=== PATIENT | male | born 1975 | race Caucasian/White ===

== ENCOUNTER 2016-10-21 07:26 | Inpatient (IN) | payer OTHER ==
[~2016-10-21] VITALS: Ht 172.7 cm; Wt 108.0 kg
--- NOTE | ~2016-10-21 | HP ---
Unit #: [id number] #: [id number] Patient: ROJAS MUÑOZ [id number] [address] [place], [place] [address] [id number] I MR#: [id number] NAME: ROJAS MUÑOZ ROOM: 337 Age: 41 Sex: M Admission Date: 10/21/2016 : 1975 Attending Physician: Leslie Diane M.D. Primary Care Physician: No Primary Care Physician HISTORY AND PHYSICAL CHIEF COMPLAINT Lower quadrant and back pain. HISTORY OF PRESENT ILLNESS The patient is a 41 year old admitted with history of hypertension, brought to the emergency room complaining of back pain. The patient stated that patient came back from work at 1:30 earlier in the morning and complaining of throbbing and burning low-back pain radiating to the front of the belly from the spine. The patient had a trauma to the left arm and the left rib a week ago. The patient stated that patient has been having worsening pain since early this morning. The patient had a CT of the abdomen and pelvis and that showed subacute left partial renal infarction. The patient also has history of abusing drugs with marijuana and denies any IV drug abuse. Denies any fever. Denies any chills. Positive for nausea and vomiting. PAST MEDICAL HISTORY History of hypertension. PAST SURGICAL HISTORY None. HOME MEDICATIONS No home medications. ALLERGIES Codeine. SOCIAL HISTORY Smokes pack of cigarettes daily. Denies alcohol. He smoked pot two weeks ago, and denies any IV drug abuse. FAMILY HISTORY Reviewed and none. REVIEW OF SYSTEMS Positive for the back pain. Positive for nausea and vomiting. Denies any headache. Denies any chest pain. Denies any short of breath. Other systems have been reviewed and all are negative except as mentioned above. PHYSICAL EXAMINATION GENERAL: The patient is sitting on a chair not in acute distress. VITAL SIGNS: Temperature 97.6, pulse 77, respiratory rate 18, blood pressure (1) , saturating 99% on room air. Unit #: [id number] #: [id number] Patient: ROJAS MUÑOZ HEENT: Head: Atraumatic, normocephalic. Pupils equal, round, and reactive to light and accommodation. Extraocular movements are intact. NECK: Supple. LUNGS: Decreased air entry at the bases. HEART: Regular rate and rhythm. ABDOMEN: Soft. Positive bowel sounds. BACK: No CVA tenderness. EXTREMITIES: No cyanosis. No clubbing. NEUROLOGIC: Alert, awake, oriented. No gross focal motor deficit. DIAGNOSTIC STUDIES LABORATORY: Urine tox is positive for amphetamines, marijuana, and opiates. UA shows pH of 9, negative bacteria, negative RBCs. Sodium 136, potassium 4, chloride 102, bicarbonate 21, glucose 124, BUN 9, creatinine 0.9. AST 37, ALT 35, albumin 5.1, lipase 36. WBC 10.4, hemoglobin 17.8, hematocrit 58.8, platelets 229,000. IMAGING: CT of the abdomen and pelvis with contrast shows subacute left partial renal infarction. No evidence of associated perirenal hemorrhage. The main renal arteries are grossly normal on both sides, although the study was not protocoled, specifically for the CTA. Diffuse hepatic steatosis. Normal appendix with no abnormalities noted in bowel loops. ASSESSMENT 1. Left renal infarct. 2. Polysubstance abuse. PLAN Plan to admit the patient to observation with telemetry. Continue with the pain medications with Dilaudid and [place]. Patient has been seen by urology and recommended hematology workup. We will consult hematology for the left renal infarct and continue with the blood pressure, pain medication. If it is still high, then we can use the beta blockers and further recommendations will follow. Dictated by Taiwo Bernard TD: 10/21/2016 16:32 JOB #: [id number] HISTORY AND PHYSICAL Page 1 of 1 X LESLIE DIANE MD X HISTORY AND PHYSICAL
--- NOTE | ~2016-10-21 | CO ---
Unit #: [id number] #: [id number] Patient: ROJAS CHESTER [id number] [address] [place], [place] [address] [id number] MR#: [id number] NAME: ROJAS CHESTER ROOM: 337 Age: 41 Sex: M Admission Date: 10/21/2016 : 1975 Attending Physician: Germán Parkinson M.D. Primary Care Physician: Primary Care Physician No Consultation Date: 10/24/2016 CONSULTATION REPORT REASON FOR CONSULT Renal infarct. Thank you very much for asking me to see this patient in consultation. HISTORY OF PRESENT ILLNESS Mr. Chester is a 41-year-old male, who presented here on 10/21/2016 where he presented with a few days of abdominal discomfort, back pain. Subsequently, worked up and CT scan showed a renal infarct. He has a history of hypertension for 5 years and not on any medications. We were asked to see the patient secondary to possible vascular problems to the kidneys. The patient states he still having some pain, but feeling better. During this hospitalization so far, he has undergone GONZALO of his heart, which showed normal EF. No sources of emboli. Although, he did have a ybddrkao-xb-mybndz atherosclerotic atheroma on his aorta. He underwent a CT angiogram of the chest and abdomen that showed some irregularity in the right renal artery and some irregularities in the left renal artery as well. I could not rule out vasculitis or possible fibromuscular dysplasia. On renal standpoint, he does have a normal creatinine of 0.9 today. PAST MEDICAL HISTORY History of hypertension and history of hyperlipidemia x5 plus years, no treatment, although the patient chose not to be treated. SOCIAL HISTORY He is a positive smoker, positive marijuana user. ALLERGIES Include codeine. MEDICATIONS At home were none. Now, he is on Lipitor, Cardura, Ambien, amlodipine, Zofran, Lopressor, and [place]. FAMILY HISTORY Negative for any blood clots or kidney problems. REVIEW OF SYSTEMS He denies any severe headaches, dizziness, visual problems, sinus problems. No cough or hemoptysis. No neck pain or neck stiffness. No chest pain or chest heaviness. Now, he did have some sore ribs after minor scraping on a land bobsledding about 2 weeks ago and a little sore in his ribs in his left lower rib. He denies any nausea or vomiting now. Unit #: [id number] #: [id number] Patient: ROJAS CHESTER He did have some nausea and vomiting prior to admission. He denies any diarrhea. Denies any lower extremity swelling. No recent seizures or strokes. He denies any nonsteroidal use. PHYSICAL EXAMINATION GENERAL: He is alert and oriented. VITAL SIGNS: Temperature is 98.8, pulse 68 to 103, blood pressure is 111 to 144 over 74 to 104. HEENT: He is normocephalic and atraumatic. Pupils are equal, round, and reactive to light. Extraocular muscles are intact. Hearing appears to be normal. Mouth is clear. No erythema. No exudate. NECK: Supple. No JVD. No adenopathy. CARDIAC: Regular rate without a rub. No S3 or S4. LUNGS: Clear bilaterally. No wheezes, rhonchi, or rales. ABDOMEN: Bowel sounds are positive. Nontender. Soft. No masses felt. No hepatomegaly noted. EXTREMITIES: He has no lower extremity swelling. His pulses are intact in upper and lower extremities. JOINTS: No joint pain or joint swelling. SKIN: No rashes. NEURO: Appears to be intact with motor and sensory grossly. : Deferred. DIAGNOSTIC STUDIES LABORATORY RESULTS: Sodium 135, potassium 4.0, chloride is 101, bicarb is 27, BUN of 15, creatinine 0.9 with glucose of 87, calcium is 8.9. Cholesterol 209. Albumin was 5.1. Upon admission, hemoglobin 16.9, white count 11,900, platelets 191,000. UA upon admission showed specific gravity of 1.029, 1+ protein, 0 to 2 rbc's, 0 to 2 wbc's, and a pH of 9. ASSESSMENT AND PLAN 1. Left renal infarct, again the patient agree with workup for secondary causes of the renal infarct certainly this atheroma on the aorta and question of that could be contributing versus other. Dr. Kwon has seen the patient for possible hypercoagulable state versus other. He did order the CT angiogram, but I am not sure of any hypercoagulable workup was needed or included at this point in time. From my standpoint, I am worried that he could certainly have fibromuscular dysplasia with irregularity even on the right side. I would recommend and it can be done as an outpatient. A renal arteriogram to rule out fibromuscular dysplasia and other abnormalities of his renal arteries. Also, we will workup for possible vasculitis as well. Go ahead and repeat UA culture and sensitivity. Check a random urine protein to creatinine ratio. Check BMP in the morning. If he is here, I have discussed this with him and told him the need for followup and studies what we are doing. 2. Proteinuria, again 1+ protein. We will repeat urine. No hematuria. Check protein to creatinine ratio. 3. Hypertension. Blood pressure is improving. Treatment per primary/Cardiology. 4. Hyperlipidemia. Dictated by... Toney Brown M.D. ANIA/foster TD: 10/27/2016 04:04 Unit #: [id number] #: [id number] Patient: ROJAS CHESTER JOB #: [id number] CONSULTATION REPORT Page 1 of 1 X Jacey Brown MD X CONSULTATION REPORT
--- NOTE | ~2016-10-21 | CT15 ---
[facility] A Service of [facility] RADIOLOGY TEXT RESULTS PATIENT: ROJAS MUÑOZ LOCATION: [facility] 337-01 : [birth year] UNIT #: [id number] AGE: [address]: Germán Parkinson MD SEX: M ORDER DR: [id number] [place], [place] [address] [id number] I MR#: [id number] #: [id number] NAME: ROJAS MUÑOZ : 1975 SEX: M STUDY DATE/TIME: 10/23/2016 16:45 UNIT: [address] ROOM: [facility] STUDY DESCRIPTION: CT Angio Chest Attending Physician: Germán Parkinson M.D. Ordering Physician: Oliver Kwon M.D. Primary Care Physician: Primary Care Physician No MEDICAL IMAGING REPORT This report is preliminary unless electronic signature is present EXAM CT angiogram of the chest HISTORY FINDINGS Please see CT angiogram of the abdomen for results. Dictated by... Anjana Rivera M.D. THIS IS AN ELECTRONICALLY VERIFIED REPORT Anjana Rivera M.D. at 10/24/2016 4:45 PM TIFFANY/danya TD: 10/24/2016 14:36 JOB #: [id number] MEDICAL IMAGING REPORT Page 1 of 1 COPY
--- NOTE | ~2016-10-21 | TOC ---
Unit #: [id number] #: [id number] Patient: ROJAS MUÑOZ [id number] [address] [address] [id number] I MR#: [id number] NAME: ROJAS MUÑOZ ROOM: 337 Age: 41 Sex: M Admission Date: 10/21/2016 : 1975 Attending Physician: Germán Parkinson M.D. Primary Care Physician: No Primary Care Physician TRANSFER OF CARE SUMMARY DISCHARGE DIAGNOSES 1. Left renal infarct. 2. Polysubstance abuse. 3. Hyperlipidemia. 4. Hypertension. 5. Metabolic acidosis. HOSPITAL COURSE The patient is a 41-year-old male who presented to [facility] emergency department with a complaint of left lower quadrant and back pain. Apparently it started when the patient came back from work at 1:30 in the morning and described it as a throbbing and burning. He presented to the emergency department due to the severity and a CT performed there revealed subacute left parietal renal infarct. The patient's tox screen was noted to be positive for amphetamines, marijuana and opiates. Hematology consult was obtained as well as urology consult. Urology recommended followup CT scan in six weeks. Hematology ordered further imaging in the form of CTA of the chest and abdomen. The patient had a GONZALO ordered as well. At this time GONZALO showed grade 4 atheroma and the patient has been started on aspirin and statin. Reports are pending for CTA of the chest and abdomen. There is an initial voice clip that is read as possible vasculitis associated with the left kidney and a renal consult has been placed. The remainder of the discharge summary including discharge medications will be dictated by my discharging colleague. Dictated by... Germán Parkinson M.D. GREGG/lawanda TD: 10/24/2016 16:08 JOB #: [id number] Unit #: [id number] #: [id number] Patient: ROJAS MUÑOZ TRANSFER OF CARE SUMMARY Page 1 of 1 X Germán Parkinson MD X TRANSFER OF CARE SUMMARY
--- NOTE | ~2016-10-21 | CT13 ---
[facility] A Service of [facility] & [facility] RADIOLOGY TEXT RESULTS PATIENT: ROJAS MUÑOZ LOCATION: [facility] 337-01 : [birth year] UNIT #: [id number] AGE: [address]: Germán Parkinson MD SEX: M ORDER DR: [id number] [facility] [address] [place], [place] [address] [id number] I MR#: [id number] #: [id number] NAME: ROJAS MUÑOZ : 1975 SEX: M STUDY DATE/TIME: 10/23/2016 16:45 UNIT: A [facility] ROOM: [facility] STUDY DESCRIPTION: CT Angio Abdomen Attending Physician: Germán Parkinson M.D. Ordering Physician: Oliver Kwon M.D. Primary Care Physician: Primary Care Physician No MEDICAL IMAGING REPORT This report is preliminary unless electronic signature is present EXAM CT angiogram of the chest and abdomen INDICATION Left partial subacute renal infarcts diagnosed on October 21, 2016. Patient also reports some chest discomfort since that time. TECHNIQUE Axial CT images were obtained from the thoracic inlet through the abdomen following the administration of intravenous contrast material. Following this 3-D reformatted images were obtained. This CT exam was performed with one or more of the following radiation dose reduction techniques: automatic exposure control, adjustment of mA and/or kV according to patient size, and iterative reconstruction. FINDINGS Thoracic aorta measures within normal size limits. I do not see any evidence of dissection. Examination was not optimized for evaluation of pulmonary arteries. No large central pulmonary thromboembolus is seen. The abdominal aorta also measures within normal size limits. Celiac axis is widely patent as is the superior mesenteric artery. The patient has two right renal arteries and two left renal arteries. Within the main right renal artery I question if there is some irregularity which could reflect some vasculitis. Specifically, fibromuscular dysplasia. On the left there is again the question of some irregularity involving branches supplying the superior pole of the left kidney again given other relative lack of atherosclerotic disease as well as the presence of some renal infarction on the left, possibility of vasculitis should be considered. Patient's inferior mesenteric artery is widely patent as are the common iliac arteries bilaterally. Patient is incidentally noted to have a common origin of the left common carotid and innominate arteries. There is no pleural or pericardial effusion. The thyroid gland, trachea and STS. [facility] A Service of [facility] & [facility] RADIOLOGY TEXT RESULTS PATIENT: ROJAS MUÑOZ LOCATION: [facility] 337-01 : [birth year] UNIT #: [id number] AGE: [address]: Germán Parkinson MD SEX: M ORDER DR: esophagus appear unremarkable. Patient is noted to have some bibasilar atelectasis. Patient is suspected to have diffuse hepatic steatosis incompletely evaluated on this angiographic protocol CT. No focal hepatic lesions are seen. Gallbladder appears unremarkable. The spleen is within normal limits as are the stomach and proximal small bowel. Adrenal glands and pancreas appear normal. Right kidney is within normal limits. Again there are areas of peripheral wedge-shaped diminished enhancement within the left kidney which certainly could reflect renal infarction. Pyelonephritis would be another consideration in the appropriate clinical setting. There is certainly no associated perinephric stranding. No hydronephrosis is seen. Correlation with urinalysis and urine cultures is recommended. I do not see any free fluid or adenopathy within the abdomen. The appendix is visualized and is within normal limits. Review of bony windows does not demonstrate any aggressive osseous abnormalities. The patient is noted to have bilateral gynecomastia. IMPRESSION 1. I do question if there is some subtle irregularity of the main renal arteries bilaterally. In the setting of possible renal infarcts in a patient with relatively minimal atherosclerotic disease, this raises the possibility of vasculitis. FMD in particular would be a consideration. Correlation with clinical presentation is recommended. No convincing involvement of any other vessels is seen. No dissection is identified. 2. Patient does show peripheral diminished enhancement within the left kidney. This results in a somewhat striated appearance to the left kidney. This was favored to be related to segmental renal infarction although certainly pyelonephritis would be another consideration. Correlation with urinalysis and urine cultures is suggested. Of note, I do not see any associated perinephric stranding, hydronephrosis or perinephric collections. 3. Suspected hepatic steatosis. 1. Dictated by... Anjana Rivera M.D. THIS IS AN ELECTRONICALLY VERIFIED REPORT Anjana Rivera M.D. at 10/24/2016 4:44 PM AFF/jw TD: 10/24/2016 14:35 JOB #: [id number] [facility] A Service of [facility] & [facility] RADIOLOGY TEXT RESULTS PATIENT: ROJAS MUÑOZ LOCATION: [facility] 337-01 : [birth year] UNIT #: [id number] AGE: [address]: Germán Parkinson MD SEX: M ORDER DR: MEDICAL IMAGING REPORT Page 1 of 1 COPY
--- NOTE | ~2016-10-21 | CO ---
Unit #: [id number] #: [id number] Patient: ROJAS CHESTER [id number] [facility]. [place], [place] [address] [id number] I MR#: [id number] NAME: ROJAS CHESTER ROOM: 337 Age: 41 Sex: M Admission Date: 10/21/2016 : 1975 Attending Physician: Germán Parkinson M.D. Primary Care Physician: Primary Care Physician No CONSULTATION REPORT HISTORY OF PRESENT ILLNESS This is a 41-year-old white male with a history of hypertension, but has not taken any blood pressure medication in some time. He presented to the emergency room with lower quadrant and left flank pain. According to the patient, this past Thursday was sledding on an [place] sled course at [employer] and had an accident resulting in abrasion to his left arm and development of left flank pain and left lower ribcage area pain shortly thereafter. He said it was mostly sharp and intermittent. He said it kind of eased off and was tolerable, then Thursday going into Thursday night, he said that it just started being progressively the pain worsening again. He said he had a cough and felt like he had a little bit of some chills. He described it as a stabbing, throbbing pain and was more constant. He denied any gross hematuria. No difficulty voiding. He has no history of kidney stones. The patient denies any chest pain, pain in his neck, bilateral jaws, shoulders, arms, or elbow. He denies any palpitations. No dizziness, presyncope, or syncope. Denies paroxysmal nocturnal dyspnea or orthopnea. No increased lower extremity edema. He denied any fever. He has some slight nausea. No vomiting or diarrhea. In the emergency room, the patient's blood pressure was found to be 183/112, heart rate 77, respirations 18, temperature 97.6, O2 saturations 99% on room air. His CT demonstrates a left renal infarct. Hematology has been consulted to evaluate for hypercoagulability state. The patient's blood pressure has slightly improved. He has been started on a beta-nell and Norvasc. Cardiology was asked to see the patient and evaluate the renal infarct to see if there is any cardiology source. The patient states he had a normal stress test years ago, but has not ever seen a regional service manager in the past. PAST MEDICAL HISTORY 1. Hypertension. 2. Non-compliancy with blood pressure medications. 3. Stress test about 10 years ago, told was normal. 4. Nicotine abuse. 5. Alcohol abuse. 6. Marijuana use. PAST SURGICAL HISTORY None. HOME MEDICATIONS None. Unit #: [id number] #: [id number] Patient: ROJAS CHESTER. SOCIAL HISTORY The patient lives with his family. 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 He says it is not physically stressful, but a lot of mental stress and a lot of walking. He smokes a pack of cigarettes a day. He drinks 3 to 4 beers 3 to 4 times a week. He smokes marijuana occasionally. He denies any other illicit drug abuse. FAMILY HISTORY His mother from ovarian cancer. His father from lung cancer. His siblings are in generally well health. REVIEW OF SYSTEMS See details in HPI. PHYSICAL EXAMINATION GENERAL: Mr. Chester is a 41-year-old white male, in no acute respiratory distress. He is awake, alert, and oriented. VITAL SIGNS: Blood pressure currently is 148/109, respirations 18, heart rate 82, temperature is 98.3, O2 saturations 97% on room air. NECK: Trachea midline. No thyromegaly or lymphadenopathy. Normal carotid upstrokes. No jugular venous distention. HEART: S1, S2. Regular rate and rhythm. No clicks, murmurs, or rubs. LUNGS: Bilaterally clear throughout. No wheezes, rales, or rhonchi. ABDOMEN: Obese, soft, tender with palpating left lower quadrant and left flank area. EXTREMITIES: Pedal pulses are palpable. No pedal edema. DIAGNOSTIC STUDIES LABORATORY RESULTS: Glucose is 97, BUN 8, creatinine 0.8, eGFR is 111. Sodium 131, potassium 3.9, chloride 99, CO2 of 24, calcium is 9.1, total protein 8.6, albumin 5.1, bilirubin total 0.6, AST 37, ALT 35, alkaline phosphatase is 63. WBC 11.9, hemoglobin 16.9, hematocrit 48.6, and platelets is 191. Fasting lipid profile; cholesterol is 209, triglycerides 114, LDL is 138, HDL is 48. Urinalysis; 1+ protein, 1.0 urobilinogen, otherwise unremarkable. Blood cultures are pending. Urine tox screen shows positive for amphetamines, positive marijuana, and positive opiates. IMAGING STUDIES: CT of abdomen and pelvis showed subacute left parietal renal infarct. No evidence of associated perirenal hemorrhage. EKG done today shows normal sinus rhythm with ventricular rate of 68 beats per minute, poor R-wave progression, mild left atrial abnormality, early repolarization. IMPRESSION 1. Left lower quadrant and left flank pains. 2. Subacute left parietal renal infarct. 3. Hypertension, poorly controlled. 4. Hyperlipidemia. 5. Nicotine abuse. 6. Marijuana use. PLAN 1. Cardiology consult to assist with evaluation and management. The Unit #: [id number] #: [id number] Patient: ROJAS CHESTER patient has been started on beta-nell and Norvasc. His blood pressure has come down some, but we will monitor closely and make any adjustments or any addition if needed. 2. The patient's cholesterol is high, his LDL is 138, we will add Lipitor 40 mg p.o. daily. 3. Hematology is preferring a transesophageal echocardiogram to try to rule out a cardioembolic source. Discussed with the patient about the GONZALO including risk of aspiration, esophageal trauma and/or reaction to the sedation. The patient verbalizes understanding and agrees to proceed. 4. Encourage the patient to completely quit smoking, alcohol and marijuana use. 5. Smoking cessation information was provided to the patient. 6. On exam, there are no signs or symptoms of unstable angina or acute congestive heart failure. Further recommendations pending per Dr. Carpio. Thank you very much for allowing us to assist in his care. Dictated by... Les Johnson/foster TD: 10/24/2016 05:28 JOB #: [id number] CONSULTATION REPORT Page 1 of 1 X Carolina Haley APRN CONSULTATION REPORT
--- NOTE | ~2016-10-21 | CT2 ---
[facility] A Service of [facility] RADIOLOGY TEXT RESULTS PATIENT: ROJAS MUÑOZ LOCATION: C3A 337- : [birth year] UNIT #: [id number] AGE: [address]: LESLIE DIANE MD SEX: M ORDER DR: [id number] [facility] [address] [place] [facility]. [place], [place] [address] [id number] I MR#: [id number] #: [id number] NAME: ROJAS MUÑOZ : 1975 SEX: M STUDY DATE/TIME: 10/21/2016 9:03 UNIT: A U ROOM: [facility] STUDY DESCRIPTION: CT Abd and Pelv W Cont Attending Physician: Leslie Diane M.D. Ordering Physician: Reji Shaffer M.D. Primary Care Physician: No Primary Care Physician MEDICAL IMAGING REPORT This report is preliminary unless electronic signature is present EXAM Abdomen and pelvis CT with contrast. HISTORY Bilateral lower abdominal pain accompanied by back pain for the past week. Pain is described as severe. TECHNIQUE Axial images were obtained with intravenous contrast. 100 mL of Isovue was used. This CT exam was performed with one or more of the following radiation dose reduction techniques: automatic exposure control, adjustment of mA and/or kV according to patient size, and iterative reconstruction. FINDINGS The liver demonstrates generalized fatty infiltration. The spleen and pancreas are unremarkable. There are multiple wedge-shaped areas of poor perfusion in the left kidney suggesting subacute renal infarction. There is no evidence of significant focal atrophy associated with this and there is no evidence of perinephric edema or inflammatory change. The study was not protocoled specifically for CT angiography but both main renal arteries are grossly normal. No focal abnormalities are seen in the SMA or celiac trunk. There is no evidence of mucosal thickening in bowel loops. The appendix is normal. There is no evidence of retroperitoneal adenopathy or ascites. Atherosclerotic calcifications are seen in the common iliac and internal iliac arteries. In the pelvis, there is no evidence of adenopathy, mass, or fluid collection. IMPRESSION 1. Subacute left partial renal infarction. No evidence of associated perirenal hemorrhage. The main renal arteries are grossly normal on both sides although the study was not protocoled, specifically for STS. [facility] A Service of [facility] & [facility] RADIOLOGY TEXT RESULTS PATIENT: ROJAS MUÑOZ LOCATION: A 337-01 : [birth year] UNIT #: [id number] AGE: [address]: LESLIE DIANE MD SEX: M ORDER DR: CTA. 2. Diffuse hepatic steatosis. 3. Normal appendix with no abnormalities noted in bowel loops. Findings called to the emergency department at the time of this dictation. ADDENDUM Also noted is a small left inguinal hernia containing fat only. Dictated by... Rojas Randhawa M.D. THIS IS AN ELECTRONICALLY VERIFIED REPORT Rojas Randhawa M.D. at 10/21/2016 5:00 PM WOLF/suzy TD: 10/21/2016 14:31 JOB #: [id number] MEDICAL IMAGING REPORT Page 1 of 1 COPY
--- NOTE | ~2016-10-21 | EKG ---
PATIENT: ROJAS MUÑOZ UNIT #: [id number] Ventricular Rate: 68 BPM Atrial Rate: 68 BPM P-R Interval: 160 ms QRS Duration: 92 ms Q-T Interval: 394 ms QTC Calculation(Bezet): 418 ms P [place]: 20 degrees Calculated R [place]: 51 degrees Calculated T [place]: 33 degrees Diagnosis Line: Normal sinus rhythm Diagnosis Line: Normal ECG Diagnosis Line: When compared with ECG of 04-MAR-2016 03:01, Diagnosis Line: Vent. rate has decreased BY 45 BPM Diagnosis Line: Confirmed by CUAUHTEMOC CATHERINE MD ([id number]) on 10/23/2016 Diagnosis Line: 7:24:07 PM INTERPRETING MD: FLORIN KUMAR
--- NOTE | ~2016-10-21 | CO ---
Unit #: [id number] #: [id number] Patient: ROJAS MUÑOZ [id number] [address] [place], [place] [address] [id number] I MR#: [id number] NAME: ROJAS MUÑOZ ROOM: 337 Age: 41 Sex: M Admission Date: 10/21/2016 : 1975 Attending Physician: Nguyen Diane M.D. Primary Care Physician: No Primary Care Physician CONSULTATION REPORT CHIEF COMPLAINT Left flank pain. HISTORY OF PRESENT ILLNESS 41-year-old gentleman with a history of hypertension, tobacco use, last Thursday was sledding on [place] s[place] course with accident resulting in abrasion to left arm, development of left flank pain day after, sharp, intermittent, slowly resolved, returned last Thursday with cough, then resolved. Several days later began to worsen, again stabbing and throbbing pain with associated chills prompting visit to emergency room. CT demonstrates left renal infarct. No gross hematuria, good stream, feels (1) , no history of stones. PAST MEDICAL HISTORY As above. SURGICAL HISTORY Patient denies. ALLERGIES/MEDICATIONS Reviewed. SOCIAL HISTORY History of tobacco, occasional alcohol. No recreational drugs. FAMILY HISTORY "Cancers." REVIEW OF SYSTEMS The patient denies headache, vision change, hearing change, cough, sore throat, chest pain, shortness of breath, diarrhea, constipation, numbness/tingling in extremities, rashes or easy bruising. Abrasion to left upper extremity noted. PHYSICAL EXAMINATION VITAL SIGNS: 97.6, 68, 18, 181/120. GENERAL: Resting comfortably in bed. HEENT: Normocephalic, atraumatic. Extraocular muscles are intact grossly. Normal hearing to gross inspection. NECK: Soft, supple. No supraclavicular lymphadenopathy. RESPIRATORY: Normal respiratory effort. Normal to palpation. ABDOMEN: Soft, nondistended, nontender. No CVA tenderness. SKIN: Multiple tattoos. No ecchymoses left flank. EXTREMITIES: Full range of motion. No edema bilateral lower extremities. Unit #: [id number] #: [id number] Patient: ROJAS MUÑOZ PSYCH: Normal mood and affect. NEUROLOGIC: Cranial nerves II-XII grossly intact. DIAGNOSTIC STUDIES LABORATORY: INR 3.9, creatinine 0.9, white blood cell count 10.4. Urinalysis negative. Hemoglobin 17.8. IMAGING: CT films reviewed. ASSESSMENT AND PLAN Left renal infarct, left flank pain. Recommend hypertension control. Needs hematology workup to evaluate for hypercoagulable state. Pain control. Will repeat CT scan in approximately six weeks. Dictated by... Vj Conde M.D. SIM/farhana TD: 10/22/2016 06:51 JOB #: [id number] CONSULTATION REPORT Page 1 of 1 X Vj Conde MD X CONSULTATION REPORT
--- NOTE | ~2016-10-21 | CO ---
Unit #: [id number] #: [id number] Patient: ROJAS MUÑOZ [id number] [address] [place], [place] [address] [id number] I MR#: [id number] NAME: ROJAS MUÑOZ ROOM: 337 Age: 41 Sex: M Admission Date: 10/21/2016 : 1975 Attending Physician: Germán Parkinson M.D. Consultation Date: 10/23/2016 CONSULTATION REPORT REASON FOR CONSULTATION Left renal infarction, please evaluate. HISTORY OF PRESENT ILLNESS Mr. Rojas Muñoz is a 41-year-old with a history of hypertension, which has not been treated for the past 5 years as well as a history of hyperlipidemia, which has similarly not been treated. He presented to the emergency room, complaining of excruciating pain in his low back, radiated to front from his spine on his left side. A week prior to that, he had scraped himself and injured himself in a bobsledding accident, but did not experience such pain. A CT scan of the abdomen and pelvis shows generalized fatty infiltration with multiple wedge-shaped areas of poor perfusion of the left kidney consistent with subacute renal infarction. Mr. Muñoz denies any IV drug usage, however, urine drug screen did show positive for amphetamines, marijuana, and opiates. He denies any fever, chills, any heart problems, or previous blood clots. PAST MEDICAL HISTORY Hypertension and hyperlipidemia, both untreated. He does not seen a physician for 5 years. FAMILY HISTORY Negative for blood clots. PAST SURGICAL HISTORY None. ALLERGIES He is allergic to codeine. SOCIAL HISTORY He smokes a pack a day. Rarely drinks any alcohol. No IV drug usage. He claims he smokes pot and surprised with the findings of amphetamines in his urine. REVIEW OF SYSTEMS Fourteen point review of systems was taken. CONSTITUTIONAL: No recent change in appetite or weight. Sweats on the day he presented to the emergency room. EYES: Negative. EARS, NOSE, MOUTH, AND THROAT: Negative. CARDIOVASCULAR: Negative. RESPIRATORY: Negative. GASTROINTESTINAL: Pain as discussed. Unit #: [id number] #: [id number] Patient: ROJAS MUÑOZ GENITOURINARY: No hematuria or urinary frequency. ALLERGIC: Negative. SKIN: Bruises and scrapes related to his fall. PSYCHIATRIC: Negative. LYMPHATIC: Negative. PHYSICAL EXAMINATION GENERAL: He is a pleasant, middle-aged man, awake, alert and oriented x3. VITAL SIGNS: 98.3, pulse is 74, respirations 18, blood pressure 135/102. Pain is 8 on a scale of 10. O2 saturations 96% on room air. HEENT: Shows pupils are equal and reactive well to light. No pallor or icterus. Mucous membranes are moist. NECK: Without adenopathy, JVD, or thyromegaly. CARDIOVASCULAR: First and second heart sounds are heard and regular without murmurs or gallops. LUNGS: Show chest expansion is symmetric. Bilateral equal air entry with normal breath sounds. ABDOMEN: Soft and nontender. Bowel sounds are present. No organomegaly. EXTREMITIES: Warm with good pulses. No edema, cyanosis, or clubbing. NEUROLOGIC: He is awake, alert, and oriented x3 without any focal findings. SKIN: Some scrapes on his left arm. PSYCHIATRIC: Normal affect. DIAGNOSTIC STUDIES LABORATORY RESULTS: CBC showed a white count of 11.9, hemoglobin 16.9, and platelets 191,000. Basic metabolic panel shows a BUN of 8 and creatinine is 0.8. IMAGING STUDIES: CT scan of the abdomen and pelvis was personally reviewed by me and shows the findings suggestive of renal infarction with right shift infarcts in the left kidney. DISCUSSION Mr. Rojas Muñoz is a 41-year-old with a history of hypertension and hyperlipidemia, both untreated, admitted with after a 2-week history of an injury from a bobsledding accident with subacute left renal infarction. He has a history of marijuana usage, but urine shows amphetamines and opiates, in addition suggesting polysubstance abuse. He denies any IV drug usage. Renal infarction will be most suggestive of arterial embolism. After discussion, the patient's recommendations are, 1. CT angiogram of the chest and abdomen to evaluate for embolic source from his arch and descending thoracic aorta. 2. Blood cultures x2 for infective endocarditis. 3. Consult Cardiology for a transesophageal echocardiogram for valvular thrombus or vegetation. Plans were discussed in detail with Mr. Muñoz. Thank you for allowing me to participate in his care. Dictated by... Oliver Kwon M.D. KYA/foster TD: 10/24/2016 05:35 JOB #: [id number] Unit #: [id number] #: [id number] Patient: ROJAS MUÑOZ CONSULTATION REPORT Page 1 of 1 X Oliver Kwon MD CONSULTATION REPORT
[~2016-10-21 07:26] MED LIST: IBUPROFEN800 MG PO; MAXZIDE 37.5 M1 EACH PO; MAXZIDE-25 MG T1 TAB; MAXZIDE-25 MG1 UDTAB PO; MEDROL PO; NO MEDICATIONS; TOPROL XL; TOPROL XL PO; TOPROL XL100 MG PO; VICODIN 5/500 T1 TAB PO; VOLTAREN75 MG PO
[2016-10-21 07:59] LABS: BASOPHIL% 0.4 % (0-2.5); EOSINOPHIL% 0.1 % (0.0-7.0); HEMATOCRIT 50.8 % (38.0-50.0); HEMOGLOBIN 17.8 gm/dL (13.0-16.0); LYMPHOCYTE# 1.3 X10e3 (1.0-3.5); LYMPHOCYTE% 12.8 % (17.0-45.0); MEAN CELL VOLUME 88.6 FL (83-96); MEAN CORPUSCULAR HEMOGLOBIN 31.1 PG (28-34); MEAN CORPUSCULAR HGB CONC 35.1 g/dL (30-36); MONOCYTE# 0.5 X10e3 (0-1.0); MONOCYTE% 4.4 % (3.0-12.0); NEUTROPHIL# 8.5 X10e3 (1.5-7.1); NEUTROPHIL% 82.3 % (40-75); PLATELET COUNT 229 X10e3 (140-420); RED BLOOD COUNT 5.73 X10e (3.90-5.60); RED CELL DISTRIBUTION WIDTH 12.9 % (11.0-15.5); WHITE BLOOD COUNT 10.4 X10e3 (4.0-10.5)
[2016-10-21 08:00] LABS: DIFF IND NO
[2016-10-21 08:24] LABS: ALBUMIN SERUM 5.1 g/dL (3.5-5.0); BILIRUBIN, DIRECT 0.1 mg/dL (0.0-0.2); BILIRUBIN,INDIRECT 0.5 mg/dL (0.0-0.9); BILIRUBIN,TOTAL 0.6 mg/dL (0.2-2.0); CALCIUM SERUM 9.9 mg/dL (8.4-10.2); CREATININE SERUM 0.9 mg/dL (0.6-1.4); GLOM FILT RATE Estimated 106.5 mL/min (>60); PROTEIN TOTAL SERUM 8.6 g/dL (6.0-8.3)
[2016-10-21 09:21] LABS: URINE SOURCE CLEAN CATCH
[2016-10-21 09:26] LABS: URINE APPEARANCE CLEAR; URINE BILIRUBIN NEG (NEG); URINE BLOOD NEG (NEG); URINE COLOR YELLOW; URINE GLUCOSE NEG (NEG); URINE KETONE 1+ (NEG); URINE LEUKOCYTE ESTERASE NEG (NEG); URINE NITRATE NEG (NEG); URINE PROTEIN 1+ (NEG); URINE SPECIFIC GRAVITY 1.026 (1.003-1.035)
[2016-10-21 09:29] LABS: URBCS1 AUWI 0-2 /[HPF] (0-2); URINE BACTERIA AUWI NEG (NEGATIVE); URINE SQUAMOUS EPITHELIAL CELL NONE SEEN /[HPF]; UWBCS1 AUWI 0-2 (0-5)
[2016-10-21 09:30] LABS: CULTURE INDICATED? NO
[2016-10-21 09:36] LABS: AMPHETAMINE POS (NEG); BARBITURATES NEG (NEG); BENZODIAZEPINES NEG (NEG); COCAINE NEG (NEG); MARIJUANA POS (NEG); OPIATES POS (NEG); TRICYCLIC ANTIDEPRESSANTS NEG (NEG); U METHADONE NEG (NEG)
[2016-10-21] MEDS ORDERED: NO MEDICATIONS (09:41)
[2016-10-22 06:37] LABS: HEMATOCRIT 47.8 % (38.0-50.0); HEMOGLOBIN 16.4 gm/dL (13.0-16.0); MEAN CELL VOLUME 89.6 FL (83-96); MEAN CORPUSCULAR HEMOGLOBIN 30.7 PG (28-34); MEAN CORPUSCULAR HGB CONC 34.2 g/dL (30-36); MEAN PLATELET VOLUME 6.9 FL (6.5-11.5); RED BLOOD COUNT 5.34 X10e (3.90-5.60); RED CELL DISTRIBUTION WIDTH 13.1 % (11.0-15.5); WHITE BLOOD COUNT 11.6 X10e3 (4.0-10.5)
[2016-10-22 07:19] LABS: BUN/CREATININE RATIO 12.85; CALCIUM SERUM 9.2 mg/dL (8.4-10.2); CREATININE SERUM 0.7 mg/dL (0.6-1.4); GLOM FILT RATE Estimated 118.1 mL/min (>60); POTASSIUM 4.3 mmol/L (3.5-5.1)
[2016-10-23 05:11] LABS: BASOPHIL% 0.2 % (0-2.5); EOSINOPHIL# 0.1 X10e3 (0-0.7); EOSINOPHIL% 0.6 % (0.0-7.0); HEMATOCRIT 48.6 % (38.0-50.0); HEMOGLOBIN 16.9 gm/dL (13.0-16.0); LYMPHOCYTE# 1.4 X10e3 (1.0-3.5); LYMPHOCYTE% 12.1 % (17.0-45.0); MEAN CELL VOLUME 88.2 FL (83-96); MEAN CORPUSCULAR HEMOGLOBIN 30.6 PG (28-34); MEAN CORPUSCULAR HGB CONC 34.7 g/dL (30-36); MONOCYTE# 0.8 X10e3 (0-1.0); MONOCYTE% 6.9 % (3.0-12.0); NEUTROPHIL# 9.5 X10e3 (1.5-7.1); NEUTROPHIL% 80.2 % (40-75); PLATELET COUNT 191 X10e3 (140-420); RED CELL DISTRIBUTION WIDTH 12.9 % (11.0-15.5); WHITE BLOOD COUNT 11.9 X10e3 (4.0-10.5)
[2016-10-23 05:12] LABS: DIFF IND NO
[2016-10-23 06:27] LABS: CALCIUM SERUM 9.1 mg/dL (8.4-10.2); CREATININE SERUM 0.8 mg/dL (0.6-1.4); GLOM FILT RATE Estimated 111.8 mL/min (>60); POTASSIUM 3.9 mmol/L (3.5-5.1)
[2016-10-23 09:14] LABS: CHOLESTEROL 209 mg/dL (0-200); HDL CHOLESTEROL 48 mg/dL (29-75); LDL/HDL RATIO 3 RATIO (0-4); TRIGLYCERIDES 114 mg/dL (10-160)
[2016-10-23 09:18] LABS: LDL CHOLESTEROL 138 mg/dL (-130)
[2016-10-24 04:38] LABS: BUN/CREATININE RATIO 16.66; CALCIUM SERUM 8.9 mg/dL (8.4-10.2); CREATININE SERUM 0.9 mg/dL (0.6-1.4); GLOM FILT RATE Estimated 106.5 mL/min (>60)
[2016-10-24 19:11] LABS: URINE APPEARANCE CLEAR; URINE BILIRUBIN NEG (NEG); URINE BLOOD NEG (NEG); URINE COLOR YELLOW; URINE GLUCOSE NEG (NEG); URINE KETONE 1+ (NEG); URINE LEUKOCYTE ESTERASE NEG (NEG); URINE NITRATE NEG (NEG); URINE PH 6.5 (5-8); URINE PROTEIN NEG (NEG); URINE SPECIFIC GRAVITY 1.021 (1.003-1.035)
[2016-10-24 19:19] LABS: CREATININE,RANDOM URINE 204 mg/dL; TOTAL PROTEIN,RANDOM URINE 17 mg/dl (<10)
[2016-10-25 05:46] LABS: BUN/CREATININE RATIO 13.33; CALCIUM SERUM 8.8 mg/dL (8.4-10.2); CREATININE SERUM 0.9 mg/dL (0.6-1.4); GLOM FILT RATE Estimated 106.5 mL/min (>60); POTASSIUM 3.9 mmol/L (3.5-5.1)
[2016-10-25] MEDS ORDERED: NICOTINE1 EAC1 TD (12:05)
[2016-10-25] MEDS ORDERED: NORVASC10 MG PO (12:06)
[2016-10-25] MEDS ORDERED: METOPROLOL TAR25 MG PO (12:07)
[2016-10-25] MEDS ORDERED: LIPITOR40 MG PO (12:07)
[2016-10-25] MEDS ORDERED: HYDROCODON-ACE1 EAC7 PO (12:08)
[2016-10-25] MEDS ORDERED: ASPIRIN81 M2 PO (12:09)
[2016-10-28 08:36] LABS: COMPLEMENT C3 187 mg/dL (90-180); COMPLEMENT C4 24 mg/dL (16-47)
[2016-10-30 22:36] LABS: ANA SCREEN Negative (Negative); MYELOPEROXIDASE AB (PNL) <1.0 AI (<1.0); PROTEINASE-3 AB (PNL) <1.0 AI (<1.0)
== END 2016-10-25 13:20 | disposition home or self-care (01) | DRG 699 ==
LOC: CED 07:26 → C3A PCU 09:49 → CEDOF 09:49 → CED 09:50 → CEDOF 11:10 → CED 11:10 → C3A PCU 11:29 → CEDOF 11:29 → C3A PCU 11:29
PROVIDERS: Emergency Medicine; Internal Medicine; Internal Medicine Nephrology
PROC: B420YZZ Computerized Tomography (CT Scan) of Abdominal Aorta using Other Contrast (ICD-10-PCS; principal; 2016-10-24)
PROC: B42 Imaging, Lower Arteries, Computerized Tomography (CT Scan) (ICD-10-PCS; 2016-10-24)
PROC: B424YZZ Computerized Tomography (CT Scan) of Superior Mesenteric Artery using Other Contrast (ICD-10-PCS; 2016-10-24)
PROC: B24BZZ4 Ultrasonography of Heart with Aorta, Transesophageal (ICD-10-PCS; 2016-10-24)
DX: N28.0 Ischemia and infarction of kidney (principal); E87.2 Acidosis; I10 Essential (primary) hypertension; F17.210 Nicotine dependence, cigarettes, uncomplicated; F15.10 Other stimulant abuse, uncomplicated; F12.10 Cannabis abuse, uncomplicated; F11.10 Opioid abuse, uncomplicated; Z91.14 Patient's other noncompliance with medication regimen; E78.5 Hyperlipidemia, unspecified; R80.9 Proteinuria, unspecified; Z71.51 Drug abuse counseling and surveillance of drug abuser; Z71.6 Tobacco abuse counseling; I70.0 Atherosclerosis of aorta
CPT/HCPCS: 36415; 71275; 74175; 74177; 80048; 80061; 80076; 80307; 81003; 82550; 82570; 83690; 84156; 85025; 85027; 86021; 86038; 86039; 86160; 86225; 86235; 86430; 87040; 93005; 93312; 96361; 96374; 96375; 99285; J1170; J1885; J2250; J2405; J3010; Q9967